=== PATIENT | female | born 1955 | race Two or more races ===

== ENCOUNTER 2018-06-09 06:54 | Day surgery (SDC) | payer OTHER ==
[~2018-06-09] VITALS: Ht 157.5 cm; Wt 93.1 kg
[~2018-06-09 06:54] MED LIST: BLOOD PRESSURE MEDS; GLUC500T11; JANUVIA; THYROID MEDS
[2018-06-09] MEDS ORDERED: PROPOFOL 200 MG INJ ONE (07:00)
[2018-06-09] MEDS ORDERED: LIDOCAINE 2% (SDV) 5 ML INJ ONE (07:00)
[2018-06-09 08:02] VITALS: Ht 157.5 cm; Wt 93.1 kg
[2018-06-09] MEDS ORDERED: SITA50TA2 PO (08:13)
[2018-06-09] MEDS ORDERED: ATOR20TA38 PO (08:13)
[2018-06-09] MEDS ORDERED: LEVO50TA89 PO (08:13)
[2018-06-09] MEDS ORDERED: LANT3I SC (08:13)
[2018-06-09] MEDS ORDERED: METF500T24 PO (08:13)
[2018-06-09] MEDS ORDERED: ASPI-817 PO (08:13)
[2018-06-09 08:38] VITALS: BP 158/71; PULSE 83; RESP 34
--- NOTE | 2018-06-09 08:52 | PREAC ---
Date/Time of Note Date/Time of Note DATE: 06/09/18 TIME: 08:51 Anesthesia Eval and Record Evaluation Time Pre-Procedure Interview DATE: 06/09/18 TIME: 08:51 Age 62 Sex female NPO: 8 hrs Preoperative diagnosis abd pain Planned procedure egd, colonoscopy Past Medical History Past Medical History: Includes Cardio: HTN Endo: Diabetes, Hypothyroid GI: Morbid obesity Surgery & Anesthesia Issues No known issue Meds Anticoagulation: No Beta Mumtaz within 24 hr: No Reason Beta Mumtaz not given: Pt. not on B-Mumtaz Reported Medications Aspirin* (Aspirin* EC) 81 Mg Tablet.dr, 81 MG PO DAILY, TAB 06/09/18 Levothyroxine Sodium* (Synthroid*) 50 Mcg Tablet, 50 MCG PO BEFORE BREAKFAST, #30 TAB 06/09/18 Atorvastatin Calcium* (Atorvastatin Calcium*) 20 Mg Tablet, 20 MG PO QHS, #30 TAB 06/09/18 Metformin Hcl* (Metformin Hcl*) 500 Mg Tablet, 500 MG PO BID, #30 TAB 06/09/18 Sitagliptin* (Januvia*) 50 Mg Tablet, 50 MG PO DAILY, #30 TAB 06/09/18 Insulin Glargine* (Lantus*) 100 Unit/Ml Soln, 50 UNIT SC BID for DM, #1 VIAL 06/09/18 Discontinued Reported Medications [Januvia] TAB No Conflict Check 03/29/10 [Blood Pressure Meds] No Conflict Check 03/29/10 [Thyroid Meds] No Conflict Check 03/29/10 Glucosamine Sulfate (Glucosamine Sulfate) 500 Mg Tablet 03/29/10 Meds reviewed: Yes Allergies Coded Allergies: No Known Allergies (Verified Allergy, Unknown, 08/31/13) Allergies Reviewed: Yes Labs/Studies Labs Reviewed: Reviewed by anesthesiologist test: Negative Studies: ECG Pre-procedure Exam Last vitals Vital Signs Date Temp Pulse Resp B/P (MAP) Pulse Ox O2 O2 Flow FiO2 Time Delivery Rate 06/09/18 98.0 83 34 158/71 99 Room Air 08:38 (100) Airway: Adequate mouth opening, Adequate thyromental dist Mallampati: Mallampati II Teeth: Normal Lung: Normal Heart: Normal ASA Physical Status ASA physical status: 3 Emergency: None Planned Anesthetic General/MAC: Mask Pre-operative Attestations Prior to commencing anesthesia and surgery, the patient was re-evaluated, there was verification of: *The patient's identity *The results of appropriate recent lab work and preoperative vital signs *The above evaluation not changing prior to induction *Anesthetic plan, risk benefits, alternative and complications discussed with patient/family; questions answered; patient/family understands, accepts and wishes to proceed. ROSELINE SOMMER Jun 09, 2018 08:52
[2018-06-09] MEDS ORDERED: PROPOFOL 40 ML ONE (08:55)
[2018-06-09 10:05] VITALS: BP 126/72; PULSE 72; RESP 18
--- NOTE | 2018-06-09 14:30 | PAC ---
Date/Time of Note Date/Time of Note DATE: 06/09/18 TIME: 14:30 Post-Anesthesia Notes Post-Anesthesia Note Last documented vital signs Vital Signs Date Temp Pulse Resp B/P (MAP) Pulse Ox O2 O2 Flow FiO2 Time Delivery Rate 06/09/18 98.0 72 18 126/72 98 Room Air 10:05 (90) Activity: WNL Respiratory function: WNL Cardiovascular function: WNL Mental status: Baseline Pain reasonably controlled: Yes Hydration appropriate: Yes Nausea/Vomiting absent: Yes ROSELINE SOMMER Jun 09, 2018 14:30
== END 2018-06-09 11:23 | disposition home or self-care (01) ==
LOC: GIL 06:54
PROVIDERS: ATTEND Internal Medicine Gastroenterology
DX: R19.4 Change in bowel habit (principal); K29.30 Chronic superficial gastritis without bleeding; D12.5 Benign neoplasm of sigmoid colon; K64.8 Other hemorrhoids; K21.9 Gastro-esophageal reflux disease without esophagitis; E11.9 Type 2 diabetes mellitus without complications; I10 Essential (primary) hypertension; E03.9 Hypothyroidism, unspecified; E66.01 Morbid (severe) obesity due to excess calories; Z68.37 Body mass index [BMI] 37.0-37.9, adult
CPT/HCPCS: 43239; 45380; 82962; 88305; 88312; Z7610